=== PATIENT | male | born 1955 | race Caucasian/White ===

== ENCOUNTER 2018-05-02 05:38 | Outpatient (CLI) | payer MEDICARE, MEDICAID ==
[~2018-05-02] VITALS: Ht 182.9 cm; Wt 66.2 kg
[~2018-05-02 05:38] MED LIST changes: -ALB0.5V IH; -ALPR0.5T7 PO; -ASPI-999 PO; -LEVO50TA6 PO; -PHEN100C4 PO
[2018-05-02] MEDS ORDERED: TIOT18CA2 IH (10:09)
[2018-05-02] MEDS ORDERED: LEVO50TA6 PO (10:09)
[2018-05-02] MEDS ORDERED: ALPR0.5T7 PO (10:09)
[2018-05-02] MEDS ORDERED: ASPI-999 PO (10:09)
[2018-05-02] MEDS ORDERED: ALB0.5V IH (10:09)
[2018-05-02] MEDS ORDERED: PHEN100C4 PO (10:09)
== END 2018-05-02 10:37 ==
LOC: PREOP 05:38
PROVIDERS: ATTEND Specialist
DX: Z01.818 Encounter for other preprocedural examination (principal)

== ENCOUNTER → 2018-05-02 | Outpatient (CLI) | payer MEDICARE, MEDICAID ==
[~2018-05-02] MED LIST: ALB0.5V IH; ALBU8.5H2; ALBU8.5H2 IH; ALBUNEBRX IH; ALPR-557 PO; ALPR0.5T7; ALPR0.5T7 PO; ASPI-266 PO; ASPI-999 PO; AZIT250T12 PO; BUDE10.2 IH; CETI-214 PO; FLUT1DIS26 IH; LEVO50TA6 PO; LEVOTHYROXINE; LVT.05T PO; MOME0.242; ONDA4TAB11; PANT40TA; PHEN-633 PO; PHEN100C4; PHEN100C4 PO; PNT40TEC PO; PRD20T PO; RT-ALBUINH IH; SUCR1TAB; TIOT18CA2; TIOT18CA2 IH; TIOT4MIS2 IH; TR1C15 TOP; VENL75CA55
--- NOTE | 2018-05-02 14:48 | Diagnostic Imaging Report ---
Indication: [id number] smoking history, cessation 4 years ago presents for annual low-dose CT screening. Study compared with a contrast-enhanced CT angio chest performed 04/20/2015. Findings: There are a few scattered thin-walled air cysts and symmetrical air trapping consistent with emphysema. There is some minimal subsegmental atelectasis in the dependent lower lobes felt incidental. There is no lung mass or suspicious pulmonary nodule. There is no effusion or pneumothorax. No acute soft tissue or osseous chest wall pathology, chronic changes of COPD identical in appearance to the previous study. No hilar or mediastinal lymphadenopathy. The aorta is patent and nonaneurysmal. No acute soft tissue or osseous chest wall disease. The visualized upper abdomen nonacute. Impression: L-RADS Category 1. No suspicious finding Chronic stable centrilobular emphysema with minimal atelectasis. No suspicious finding. Annual low-dose CT screening followup recommended in 12 months' time. Dictated by: Dictated on workstation # [id number]
== END ==
LOC: RAD 11:56
PROVIDERS: ATTEND Internal Medicine Critical Care Medicine
DX: J43.2 Centrilobular emphysema (principal); Z87.891 Personal history of nicotine dependence

== ENCOUNTER 2018-05-03 10:48 | Day surgery (SDC) | payer MEDICARE, MEDICAID ==
[~2018-05-03] VITALS: Ht 182.9 cm; Wt 66.2 kg
[~2018-05-03 10:48] MED LIST changes: +ALB0.5V IH; +ALPR0.5T7 PO; +ASPI-999 PO; +LEVO50TA6 PO; +PHEN100C4 PO
--- OUTSIDE RECORDS SUMMARY | 2018-05-03 10:53 | XMS REPORT | Continuity of Care Document ---
Author Author [facility] Organization [facility] Address Unknown Phone Unavailable Allergies Active Description Code Type Severity Reaction Onset Reported/Identified Relationship to Patient Clinical Status Yes AMITRIPTYLINE UNKNOWN UNKNOWN Yes No Known Drug Allergies [id number] Drug Allergy Unknown N/A 03/28/2016 Medications There is no data. Problems Date Dx Coded Attending Type Code Diagnosis Diagnosed By 04/07/2015 CHUYITA ARREOLA MD Ot 496 CHR AIRWAY OBSTRUCT NEC 04/07/2015 CHUYITA ARREOLA MD Ot 780.79 OTH MALAISE FATIGUE 04/07/2015 CHUYITA ARREOLA MD Ot 786.50 CHEST PAIN NOS 04/27/2015 TYSON PAULINO, ALI FACP CCDS Ot 070.70 UNSPECIFIED VIRAL HEPATITIS C WITHOUT HE 04/27/2015 TYSON ROLDAN FACC, ALI FACP CCDS Ot 496 CHR AIRWAY OBSTRUCT NEC 04/27/2015 TYSON ROLDAN FACC, KELLY FACP CCDS Ot 786.09 RESPIRATORY ABNORM NEC 04/27/2015 TYSON ROLDAN FACC, ALI FACP CCDS Ot 786.59 CHEST PAIN NEC 04/27/2015 TYSON PAULINO, ALI FACP CCDS Ot V15.82 HISTORY OF TOBACCO USE 04/27/2015 TYSON PAULINO, ALI FACP CCDS Ot V58.69 OTH MED,LT,CURRENT USE 05/19/2015 BRII LUNDY DO Ot 492.8 05/19/2015 BRII LUNDY DO Ot 786.05 05/21/2015 BRII LUNDY DO Ot 496 05/21/2015 BRII LUNDY DO Ot 786.05 06/01/2015 BRII LUNDY DO Ot 492.8 06/01/2015 BRII LUNDY DO Ot 786.05 07/06/2015 BRII LUNDY DO Ot 496 07/06/2015 BRII LUNDY DO Ot 786.05 07/14/2015 BRII LUNDY DO Ot 496 CHR AIRWAY OBSTRUCT NEC 07/14/2015 BRII LUNDY DO Ot 786.05 SHORTNESS OF BREATH 09/30/2015 BRII LUNDY DO Ot J44.9 10/13/2015 BRII LUNDY DO Ot J44.9 CHRONIC OBSTRUCTIVE PULMONARY DISEASE, U 02/01/2016 HANEY DO, ILEANA L Ot J44.1 CHRONIC OBSTRUCTIVE PULMONARY DISEASE W 02/01/2016 HANEY DO, ILEANA L Ot R42 DIZZINESS AND GIDDINESS 02/01/2016 HANEY DO, ILEANA L Ot Z87.891 PERSONAL HISTORY OF NICOTINE DEPENDENCE 03/28/2016 [place] JUAN IRENE D Ot Z12.11 ENCOUNTER FOR SCREENING FOR MALIGNANT NE 03/28/2016 [place] JUAN IRENE D Ot Z80.0 FAMILY HISTORY OF MALIGNANT NEOPLASM OF 03/30/2016 [place] JUAN IRENE D Ot Z12.11 ENCOUNTER FOR SCREENING FOR MALIGNANT NE 03/30/2016 [place] JUAN IRENE D Ot Z80.0 FAMILY HISTORY OF MALIGNANT NEOPLASM OF 02/13/2018 Catherine Oneyda A 345.80 OTHER FORMS OF EPILEPSY AND RECURRENT SEIZURES, WITHOUT MENTION OF INTRACTABLE EPILEPSY 02/13/2018 Catherine Oneyda A G40.801 OTHER EPILEPSY, NOT INTRACTABLE, WITH STATUS EPILEPTICUS 02/13/2018 Catherine Oneyda W 070.30 VIRAL HEPATITIS B WITHOUT MENTION OF HEPATIC COMA, ACUTE OR UNSPECIFIED, WITHOUT MENTION OF HEPATITIS DELTA 02/13/2018 Catherine Oneyda W 070.54 02/13/2018 Alfreda Alexanderhy W 300.00 ANXIETY STATE, UNSPECIFIED 02/13/2018 Catherine Oneyda A 345.80 OTHER FORMS OF EPILEPSY AND RECURRENT SEIZURES, WITHOUT MENTION OF INTRACTABLE EPILEPSY 02/13/2018 Alfreda Alexanderhy W 477.8 02/13/2018 Oneyda Alexander W 496 CHRONIC AIRWAY OBSTRUCTION, NOT ELSEWHERE CLASSIFIED 02/13/2018 Oneyda Alexander W B18.2 CHRONIC VIRAL HEPATITIS C 02/13/2018 Catherine Oneyda W B19.10 UNSPECIFIED VIRAL HEPATITIS B WITHOUT HEPATIC COMA 02/13/2018 Alfreda Alexanderhy W F41.9 ANXIETY DISORDER, UNSPECIFIED 02/13/2018 Catherine Oneyda A G40.801 OTHER EPILEPSY, NOT INTRACTABLE, WITH STATUS EPILEPTICUS 02/13/2018 Oneyda Alexander W J30.2 OTHER SEASONAL ALLERGIC RHINITIS 02/13/2018 Catherine, Oneyda W J44.9 CHRONIC OBSTRUCTIVE PULMONARY DISEASE, UNSPECIFIED 02/13/2018 Catherine, Oneyda W 070.30 02/13/2018 Catherine, Oneyda W 070.54 02/13/2018 Catherine, Oneyda W 244.9 02/13/2018 Catherine, Oneyda W 300.00 02/13/2018 Catherine, Oneyda A 345.80 OTHER FORMS OF EPILEPSY AND RECURRENT SEIZURES, WITHOUT MENTION OF INTRACTABLE EPILEPSY 02/13/2018 Catherine, Oneyda W 477.8 02/13/2018 Catherine, Oneyda W 496 CHRONIC AIRWAY OBSTRUCTION, NOT ELSEWHERE CLASSIFIED 02/13/2018 Catherine, Oneyda W B18.2 CHRONIC VIRAL HEPATITIS C 02/13/2018 Catherine, Oneyda W B19.10 UNSPECIFIED VIRAL HEPATITIS B WITHOUT HEPATIC COMA 02/13/2018 Catherine, Oneyda W E03.9 HYPOTHYROIDISM, UNSPECIFIED 02/13/2018 Catherine, Oneyda W F41.9 ANXIETY DISORDER, UNSPECIFIED 02/13/2018 Catherine, Oneyda A G40.801 OTHER EPILEPSY, NOT INTRACTABLE, WITH STATUS EPILEPTICUS 02/13/2018 Catherine, Oneyda W J30.2 OTHER SEASONAL ALLERGIC RHINITIS 02/13/2018 Catherine, Oneyda W J44.9 CHRONIC OBSTRUCTIVE PULMONARY DISEASE, UNSPECIFIED 04/30/2018 BRII LUNDY DO Ot 492.8 EMPHYSEMA NEC 04/30/2018 BRII LUNDY DO Ot 786.05 SHORTNESS OF BREATH 04/30/2018 BRII LUNDY DO Ot J44.9 CHRONIC OBSTRUCTIVE PULMONARY DISEASE, U 04/30/2018 BRII LUNDY DO Ot Z87.891 PERSONAL HISTORY OF NICOTINE DEPENDENCE Procedures There is no data. Results Test Result Range Thyroid Stimulating Hormone - 04/23/17 14:20 TSH 1.71 mIU/mL 0.32-5.00 Dilantin - 04/25/17 11:10 Dilantin 7.7 ug/mL 10.0-20.0 Hep B Surface Ab - 10/25/17 08:45 Hep B Surface Ab, Qual Non Reactive Hep B Core Ab, Tot - 10/25/17 08:45 Hep B Core Ab, Tot Positive Negative Hep B Core Ab, IgM - 10/25/17 08:45 Hep B Core Ab, IgM Negative Negative Thyroid Stimulating Hormone - 10/25/17 08:45 TSH 2.07 mIU/mL 0.32-5.00 Hep B Core Ab, Tot - 10/25/17 08:45 HEP B CORE AB, TOT POSITIVE NEGATIVE Hep B Core Ab IgM - 10/25/17 08:45 Hep B Core Ab, IgM NEGATIVE NEGATIVE Hepatitis C Virus (HCV) RNA, Qual, JEROME w/ reflex to Quant PC - 10/25/17 11:45 HCV RNA JEROME QUALITATIVE POSITIVE NEGATIVE HEPATITIS C QUANTITATION [id number] IU/ML TEST INFORMATION: THE QUANTITATIVE RANGE OF THIS ASSAY IS 15 IU/ML TO 100 MILLION IU/ML. LOG 10 5.250 LOG10 IU/ML HCV RNA JEROME Qual rfx to Quant - 10/25/17 11:45 HCV RNA JEROME Qualitative Positive Negative HCV Real-Time, PCR, Quant - 10/25/17 11:45 Hepatitis C Quantitation [id number] IU/mL log 10 5.250 log10 IU/mL Test Information: Comment Dilantin - 10/26/17 10:30 Dilantin 12.7 ug/mL 10.0-20.0 Thyroid Stimulating Hormone - 02/13/18 14:22 TSH 1.80 mIU/mL 0.32-5.00 Hepatitis C Virus (HCV) RNA, Qual, JEROME w/ reflex to Quant PC - 02/13/18 14:22 HCV RNA JEROME QUALITATIVE NEGATIVE NEGATIVE HCV RNA JEROME Qual rfx to Quant - 02/13/18 14:22 HCV RNA JEROME Qualitative Negative Negative Encounters ACCT No. Visit Date/Time Discharge Status Pt. Type Provider Facility Loc./Unit Complaint [id number] 04/25/2018 11:33:00 04/25/2018 23:59:59 CLS Preadmit BRII LUNDY DO [facility] RAD SMOKING HISTORY [id number] 03/28/2016 07:39:00 03/28/2016 09:35:00 DIS Outpatient JUAN WOODS DO [facility] SCREENING,FAMILY HX COLON CANCER [id number] 02/01/2016 14:26:00 02/01/2016 17:52:00 DIS Emergency ILEANA HANEY DO [facility] ER SOA/DIZZY [id number] 10/14/2015 15:00:00 10/14/2015 23:59:59 CLS Preadmit BRII ULNDY DO [facility] PULM COPD, DYSPNEA [id number] 07/22/2015 09:00:00 10/13/2015 00:01:00 DIS Outpatient BRII LUNDY DO [facility] PULM COPD, DYSPNEA [id number] 07/13/2015 09:00:00 07/14/2015 00:01:00 DIS Outpatient BRII LUNDY DO [facility] PULM COPD, DYSPNEA [id number] 04/27/2015 07:08:00 04/27/2015 12:18:00 DIS Outpatient TYSON ROLDAN FACC, KELLY FACP CCDS [facility] CATH CP,SOB [id number] 04/20/2015 12:41:00 04/20/2015 23:59:59 CLS Outpatient BRII LUNDY DO [facility] RAD COPD,DYSPNEA [id number] 04/07/2015 12:53:00 04/07/2015 17:32:00 DIS Emergency ELBA ROLDAN, CHUYITA Owens [facility] ER L CHEST PAIN [id number] 05/03/2018 13:00:00 PEN Preadmit LORI SELF MD [facility] CATARACT LEFT EYE [id number] 07/27/2015 17:07:31 ACT Document Registration [id number] 10/27/2017 17:09:00 Document Registration [id number] 02/13/2018 14:21:00 02/13/2018 23:59:00 DIS Outpatient Oneyda Alexander [id number] 10/26/2017 10:30:00 10/26/2017 23:59:00 DIS Outpatient Oneyda Alexander [id number] 2017 11:44:00 2017 23:59:00 DIS Outpatient Oneyda Alexander [id number] 2017 10:56:00 2017 23:59:00 DIS Outpatient Oneyda Alexander [id number] 2017 08:45:00 2017 23:59:00 DIS Outpatient Oneyda Alexander [id number] 04/25/2017 11:54:00 04/25/2017 23:59:00 DIS Outpatient Regulo Elias [id number] 04/23/2017 15:20:00 04/23/2017 23:59:00 DIS Outpatient Regulo Elias [id number] 11/01/2017 16:18:00 Document Registration [id number] 02/16/2018 17:10:00 Document Registration
[2018-05-03] MEDS ORDERED: POVIDONE (BETADINE) OPHTH SOLN 5% 30 ML OP ONE (11:00)
[2018-05-03] MEDS ORDERED: VANCOMYCIN/BSS (COMPOUNDED) 10 MG/ML SYR OP ONE (11:00)
[2018-05-03] MEDS ORDERED: TIMOLOL MALEATE 0.5% 5 ML (TIMOPTIC) BTL OU PRN (11:00)
[2018-05-03] MEDS ORDERED: EPINEPHrine INJECTION 1 MG/ML AMP INJ ONE (11:00)
[2018-05-03] MEDS ORDERED: LIDOCAINE PF 1% 2 ML AMP IR PRN (11:00)
[2018-05-03] MEDS: TETRACAINE 0.5% OPHTH SOLN 4 ML BTL (SINGLE DOSE ONLY) OU PRN ×4 (11:01→11:20)
[2018-05-03] MEDS: PHENYLEPHRINE 10% OPHTH (NEO-SYN) 5 ML BTL OU SCH ×3 (11:07→11:20)
[2018-05-03] MEDS: CYCLOPENTOLATE 1% (CYCLOGYL) 2 ML DROPS OP SCH ×3 (11:07→11:20)
[2018-05-03 11:13] VITALS: BP 136/83
--- NOTE | 2018-05-03 11:37 | Ophthalmologist Pre-Op Note ---
Pre-Operative Progress Note H&P Reviewed The H&P was reviewed, patient examined and no changes noted. Date H&P Reviewed: May 03, 2018 Time H&P Reviewed: 11:36 Pre-Op Dx Cataract, Left Eye LORI SELF MD May 03, 2018 11:37
[2018-05-03] MEDS ORDERED: MIDAZOLAM 2 MG/2 ML (VERSED) VIAL ONE (11:39)
--- NOTE | 2018-05-03 12:05 | Ophthalmology Operative Report ---
Cataract removal/placement IOL PREOPERATIVE DIAGNOSIS: Cataract Left Eye POSTOPERATIVE DIAGNOSIS: Cataract Left Eye PROCEDURE: Cataract removal and placement of posterior chamber implant, left eye SURGEON: Edgardo Self ANESTHESIA: Topical with sedation COMPLICATIONS: None ESTIMATED BLOOD LOSS: Minimal DESCRIPTION OF PROCEDURE: After proper informed consent was obtained, the patient, a 62 male, was taken to the Operating Room and the left eye was anesthetized with tetracaine. The left eye was then prepped and draped in the usual manner. A wire lid speculum was placed. A paracentesis was made at the left hand position. Preservative free lidocaine was injected into the anterior chamber followed by viscoelastic. A clear corneal incision was made in the temporal position. A capsulorrhexis was preformed and the central nuclear and cortical material were removed. The posterior capsule was polished and an Ace 31.0 SN60AT IOL was placed into the capsular bag. The residual viscoelastic was aspirated and balanced saline solution was injected into the anterior chamber. Vancomycin was injected into the anterior chamber. The wound was checked and found to be water tight. The patient tolerated the procedure well without complications. EDGARDO SELF MD May 03, 2018 12:05
[2018-05-03 12:08] VITALS: BP 128/86
--- NOTE | 2018-05-03 12:42 | Anesthesia-General Post-Op ---
MAC Patient Condition Mental Status/LOC: Same as Preop Cardiovascular: Satisfactory Nausea/Vomiting: Absent Respiratory: Satisfactory Pain: Controlled Complications: Absent Post Op Complications Complications None Follow Up Care/Instructions Patient Instructions None needed. Anesthesiology Discharge Order Discharge Order Patient is doing well, no complaints, stable vital signs, no apparent adverse anesthesia problems. No complications reported per nursing. MEGAN SHAH CRNA May 03, 2018 12:42
== END 2018-05-03 12:08 | disposition home or self-care (01) ==
LOC: SDC 10:48
PROVIDERS: ATTEND Specialist
DX: H26.9 Unspecified cataract (principal); J44.9 Chronic obstructive pulmonary disease, unspecified; R56.9 Unspecified convulsions; F17.200 Nicotine dependence, unspecified, uncomplicated; Z79.82 Long term (current) use of aspirin

== ENCOUNTER → 2018-05-28 | Outpatient (CLI) | payer MEDICARE, MEDICAID ==
--- NOTE | 2018-05-28 08:57 | Diagnostic Imaging Report ---
CLINICAL INDICATION: Patient with elevated ALT. EXAM: Ultrasound of both kidneys. COMPARISON: None. FINDINGS: Both kidneys are normal in size, shape, echogenicity and cortical thickness without hydronephrosis, stones, or focal lesions with the right and left kidneys measuring 10.5 cm and 10.4 cm in their craniocaudal dimensions, respectively. The bladder is partially fluid-filled with no gross abnormality noted. Ureteral jets are not visualized. IMPRESSION: Unremarkable bilateral renal ultrasound. Dictated by: Dictated on workstation # [id number]
--- NOTE | 2018-05-28 09:16 | Diagnostic Imaging Report ---
INDICATION: Elevated liver function tests TECHNIQUE: Multiple grayscale sonographic images were obtained of the right upper quadrant of the abdomen. CORRELATION STUDY: None FINDINGS: LIVER: There is uniform echotexture within the visualized portions of the liver. There is normal, hepatopedal direction of flow within the main portal vein. Liver size 18 cm. GALLBLADDER: The gallbladder demonstrates no definitive shadowing gallstones. No abnormal gallbladder wall thickening or pericholecystic fluid. COMMON BILE DUCT: Nondilated at 3 mm. PANCREAS: Visualized portions appearing unremarkable. RIGHT KIDNEY: Measures 9.9 cm. No hydronephrosis. AORTA/IVC: Not well visualized. OTHER: None. IMPRESSION: 1. Unremarkable appearing right upper quadrant abdominal ultrasound. Dictated by: Dictated on workstation # [id number]
== END ==
LOC: RAD 07:36
PROVIDERS: ATTEND Registered Nurse
DX: R74.0 Nonspecific elevation of levels of transaminase and lactic acid dehydrogenase [LDH] (principal)
CPT/HCPCS: 76705; 76770

== ENCOUNTER → 2018-11-13 | Outpatient (CLI) | payer MEDICARE, MEDICAID ==
[~2018-11-13] MED LIST changes: +HYDR-4226 PO
--- NOTE | 2018-11-13 11:56 | Diagnostic Imaging Report ---
PROCEDURE: US Hepatic (Liver). TECHNIQUE: Multiple real-time grayscale images were obtained over the right upper quadrant in various projections. INDICATION: Elevated liver enzymes. FINDINGS: The previous hepatic ultrasound exam performed on 05/28/2018 failed to show any mass involving the liver. On this study, the liver is homogeneous and not enlarged. There is still no focal mass identified and the biliary tree is not abnormally dilated. Spectral and color flow imaging of the portal and hepatic vasculature shows that the veins are patent and that there is normal direction of flow within the veins. There is no evidence for cholelithiasis or acute cholecystitis and the common bile duct is not dilated. The right kidney is unremarkable. The pancreas and proximal aorta are partially obscured by bowel gas. IMPRESSION: 1. There is no evidence for an acute abnormality of the right upper quadrant. When compared to the previous study, there has been no significant change. Dictated by: Dictated on workstation # [id number]
== END ==
LOC: RAD 06:58
PROVIDERS: ATTEND Registered Nurse
DX: B19.10 Unspecified viral hepatitis B without hepatic coma (principal); B19.20 Unspecified viral hepatitis C without hepatic coma
CPT/HCPCS: 76705

== ENCOUNTER → 2019-05-05 | Outpatient (CLI) | payer MEDICARE, MEDICAID ==
[~2019-05-05] MED LIST changes: -CETI-214 PO; +CETI-458 PO
--- NOTE | 2019-05-05 13:19 | Diagnostic Imaging Report ---
INDICATION: 24-hulf-qpck smoking history, cessation five years ago, presents for annual low-dose CT screening. COMPARISON: 05/02/2018. PROTOCOL: Low-dose nonenhanced chest CT performed with multiplanar reconstructions. FINDINGS: Air trapping and features of COPD as a chronic finding are noted. No significant bronchiectasis. No pneumonia. There are few trace zones of subsegmental subpleural atelectasis. No suspicious nodularity or dominant lung mass. No thoracic adenopathy. Mild tracheobronchomegaly, stable. No evidence for adenopathy. No thoracic aneurysm. No acute chest wall pathology. IMPRESSION: 1. Benign changes of COPD with no suspicious nodule. 2. Continued low-dose CT follow-up in one year's time recommended. LUNG-RADS CATEGORY: 1 - Negative. No lung nodules. Continue annual screening with LDCT in 12 months. Dictated by: Dictated on workstation # [id number]
== END ==
LOC: RAD 11:21
PROVIDERS: ATTEND Nurse Practitioner Family
DX: Z12.2 Encounter for screening for malignant neoplasm of respiratory organs (principal); J44.9 Chronic obstructive pulmonary disease, unspecified; Z87.891 Personal history of nicotine dependence

== ENCOUNTER → 2020-05-06 | Outpatient (CLI) | payer MEDICARE, MEDICAID ==
--- NOTE | 2020-05-06 13:30 | Diagnostic Imaging Report ---
EXAMINATION: CT Chest without contrast (lung screening). TECHNIQUE: Multiple contiguous axial images were obtained through the chest without the use of intravenous contrast according to lung cancer screening protocol. All CT scans use one or more of the following dose optimizing techniques: automated exposure control, MA and/or KvP adjustment based on a patient size and exam type, or iterative reconstruction. HISTORY: 44 pack year history of smoking. COMPARISON: 05/05/2019 FINDINGS: There is no edema or pneumonia. No pleural effusion. No pneumothorax. No suspicious nodules. Mucus is present in the trachea. Heart size is normal. There are no coronary artery calcifications. No pericardial effusion. Aorta is normal in caliber. There is no axillary or supraclavicular lymphadenopathy. There is no mediastinal lymphadenopathy. Limited views of the upper abdomen are unremarkable. There are no suspicious osseus lesions. IMPRESSION: 1. No suspicious pulmonary nodules. LUNG-RADS CATEGORY: 1 MODIFIER: None. Dictated by: Dictated on workstation # [id number]
== END ==
LOC: RAD 11:35
PROVIDERS: ATTEND Nurse Practitioner Family
DX: Z12.2 Encounter for screening for malignant neoplasm of respiratory organs (principal); Z87.891 Personal history of nicotine dependence

== ENCOUNTER → 2021-03-02 | Outpatient (CLI) | payer MEDICARE, MEDICAID ==
[~2021-03-02] MED LIST changes: +RT-ALBUTEROL SULF 2.5 MG/3 ML PRE-MIX VIAL INH ONE
== END ==
LOC: RT 12:22
PROVIDERS: ATTEND Nurse Practitioner Family
DX: J44.9 Chronic obstructive pulmonary disease, unspecified (principal)
CPT/HCPCS: 94060; 94726; 94729

== ENCOUNTER 2021-05-03 05:35 | Outpatient (CLI) | payer MEDICARE, MEDICAID ==
[~2021-05-03 05:35] MED LIST changes: -RT-ALBUTEROL SULF 2.5 MG/3 ML PRE-MIX VIAL INH ONE
[2021-05-03] MEDS ORDERED: LEVE500S9 PO (15:16)
[2021-05-03] MEDS ORDERED: CETI10TA17 PO (15:16)
[2021-05-03] MEDS ORDERED: LEVO-129 PO (15:16)
[2021-05-03] MEDS ORDERED: UMEC62.5 IH (15:16)
[2021-05-03] MEDS ORDERED: BUDE10.7 IH (15:16)
== END 2021-05-03 16:01 | disposition home or self-care (01) ==
LOC: PREOP 05:35
PROVIDERS: ATTEND Surgery
DX: Z01.818 Encounter for other preprocedural examination (principal)

== ENCOUNTER 2021-05-10 10:10 | Day surgery (SDC) | payer MEDICARE, MEDICAID ==
[~2021-05-10] VITALS: Ht 183 cm; Wt 69.0 kg
[~2021-05-10 10:10] MED LIST changes: +BUDE10.7 IH; +CETI10TA17 PO; +LEVE500S9 PO; +LEVO-129 PO; +UMEC62.5 IH
[2021-05-10] MEDS ORDERED: LACTATED RINGERS 1,000 ML IV ONE (10:27)
[2021-05-10] MEDS ORDERED: LACTATED RINGERS 1,000 ML IV STA (10:27)
[2021-05-10 10:40] VITALS: BP 148/92
[2021-05-10] MEDS ORDERED: PROPOFOL INJECTION 50 ML IV ONE (12:46)
[2021-05-10] MEDS ORDERED: MIDAZOLAM 2 MG/2 ML (VERSED) VIAL ONE (12:46)
--- NOTE | 2021-05-10 12:46 | Progress Note-Pre Operative ---
Pre-Operative Progress Note H&P Reviewed The H&P was reviewed, patient examined and no changes noted. Date Seen by Provider: May 10, 2021 Time Seen by Provider: 12:45 Date H&P Reviewed: May 10, 2021 Time H&P Reviewed: 12:45 Pre-Operative Diagnosis: family hx colon ca JUAN WOODS DO May 10, 2021 12:45
[2021-05-10 13:20] VITALS: BP 101/68
[2021-05-10 13:25] VITALS: BP 120/74
--- NOTE | 2021-05-10 13:27 | Discharge Inst-Simple/Standard ---
Discharge Inst-Standard Patient Instructions/Follow Up Plan of Care/Instructions/FU: 5 years repeat colonoscopy, any issues before that be seen at that time. Activity as Tolerated: Yes Discharge Diet: Regular Diet JUAN WOODS DO May 10, 2021 13:27
--- NOTE | 2021-05-10 13:28 | Progress Note-Post Operative ---
Post-Operative Progess Note Surgeon (s)/Whiting Machine Operator (s) Surgeon JUAN WOODS DO Whiting Machine Operator: na Pre-Operative Diagnosis family hx colon ca Post-Operative Diagnosis normal colon Procedure & Operative Findings Date of Procedure 05/10/21 Procedure Performed/Findings colonoscopy Anesthesia Type per clerk Estimated Blood Loss Estimated blood loss (mL): none Specimens/Packing Specimens Removed na JUAN WOODS DO May 10, 2021 13:28
[2021-05-10 13:30] VITALS: BP_SYST 117; BP_SYST 129; BP_DIAS 77; BP_DIAS 79
[2021-05-10 13:55] VITALS: BP 135/84
[2021-05-10 14:00] VITALS: BP 135/84
--- NOTE | 2021-05-10 17:51 | OPERATIVE REPORT ---
DATE OF SERVICE: 05/10/2021 PREOPERATIVE DIAGNOSIS: Family history of colon cancer. POSTOPERATIVE DIAGNOSIS: Normal colon. PROCEDURE PERFORMED: Colonoscopy. SURGEON: Juan Quezada DO ANESTHESIA: Per ORTHODONTIC TECHNICIAN ASSISTANT. ESTIMATED BLOOD LOSS: None. COMPLICATIONS: None. INDICATIONS FOR PROCEDURE: The patient is a 65-year-old male with family history of colon cancer. He understands the risks and benefits of procedure and wishes to proceed with the procedure. Consent was signed in the chart. DESCRIPTION OF PROCEDURE: The patient was taken to the endoscopy suite and placed in a left lateral recumbent position. Timeout was performed. Digital rectal exam was performed. No palpable polyps, masses or ulcerations. Scope was inserted in the rectum and advanced all the way to cecum with minimal difficulty. Prep was adequate. Scope was then slowly retracted back. No polyps, masses or ulcerations within the cecum, ascending, transverse, descending and sigmoid colon. Once in the rectum, scope was retroflexed noting no other pathology. Scope was returned to its normal position, slowly withdrawn until completely removed. The patient tolerated the procedure well without any complications. He was taken to recovery room in stable condition. RECOMMENDATIONS: The patient will need repeat colonoscopy in five years. Any issues before that be seen at that time. Job ID: [id number] DocumentID: [id number] Dictated Date: 05/10/2021 13:31:07 Engineering Group Manager Date: 05/10/2021 17:50:12 Dictated By: JUAN QUEZADA DO
== END 2021-05-10 14:01 | disposition home or self-care (01) ==
LOC: ENDO 10:10
PROVIDERS: ATTEND Surgery
DX: Z12.11 Encounter for screening for malignant neoplasm of colon (principal); J43.9 Emphysema, unspecified; I20.9 Angina pectoris, unspecified; F32.9 Major depressive disorder, single episode, unspecified; Z79.82 Long term (current) use of aspirin; Z79.51 Long term (current) use of inhaled steroids; Z79.899 Other long term (current) drug therapy; Z79.02 Long term (current) use of antithrombotics/antiplatelets; Z87.891 Personal history of nicotine dependence; Z80.0 Family history of malignant neoplasm of digestive organs

== ENCOUNTER → 2021-05-19 | Outpatient (CLI) | payer MEDICARE, MEDICAID ==
--- NOTE | 2021-05-19 10:38 | Diagnostic Imaging Report ---
CT Lung Screening INDICATION:Screening for lung cancer, 72-cjaw-rfqv history of smoking, quit smoking 6 years prior. TECHNIQUE: Noncontrast, low-dose CT imaging performed according to the lung cancer screening protocol. Auto Exposure Controls were utilize during the CT exam to meet ALARA standards for radiation dose reduction. COMPARISON:05/06/2020 and 05/05/2019 FINDINGS:No significant adenopathy within the chest. Mild scattered vascular calcifications within the thoracic aorta and its branch vessels, including within the coronary arteries. No aneurysmal dilatation of thoracic aorta. No pericardial effusion. No pleural effusion. Linear secretions are noted within the trachea and left mainstem bronchus. Moderate background emphysematous changes. No pneumothorax. New 0.4 x 0.4 x 0.4 cm solid left upper lobe pulmonary nodule, series 4, image 80. A 2 mm subpleural right upper lobe pulmonary nodule is stable since 2019 and benign. Irregular 1.0 x 1.0 x 0.9 cm right lower lobe pulmonary nodule is present, series 4, image 176 and series 602, image 43. An adjacent irregular 0.8 x 0.5 cm right lower lobe pulmonary nodule is noted just posterior and superior to the additional irregular pulmonary nodule. This is best seen on series 4, image 172. The minimally visualized upper abdomen is grossly unremarkable. Mild scattered osseous degenerative changes without acute osseous abnormality. IMPRESSION: Two adjacent irregular right lower lobe pulmonary nodules are present which are very suspicious for malignancy. Recommend CT-guided biopsy of the dominant irregular 1 cm right lower lobe pulmonary nodule. New 0.4 cm solid left upper lobe pulmonary nodule. This is indeterminate. A follow-up CT of the chest is recommended in 6 months to reevaluate. Given small size, this would be below the size threshold of PET. Moderate background emphysematous changes. LUNG-RADS CATEGORY:4B: Very suspicious MODIFIER:S: Moderate background emphysematous changes FOLLOWUP: CT-guided biopsy of the dominant 1 cm right lower lobe irregular pulmonary nodule. Called and faxed to Daysi Grider APRN Dictated by: Dictated on workstation # [id number]
== END ==
LOC: RAD 09:15
PROVIDERS: ATTEND Nurse Practitioner Family
DX: Z12.2 Encounter for screening for malignant neoplasm of respiratory organs (principal); J43.9 Emphysema, unspecified; R91.8 Other nonspecific abnormal finding of lung field; Z87.891 Personal history of nicotine dependence
CPT/HCPCS: 71271

== ENCOUNTER → 2021-06-14 | Outpatient (CLI) | payer MEDICARE, MEDICAID ==
--- NOTE | 2021-06-14 14:53 | Diagnostic Imaging Report ---
Indication: Right lower lobe lung nodule and dyspnea. Serum blood glucose level at time of injection is 109 mg/dL. The patient was administered 14.7 mCi F-18 FDG intravenously in left antecubital location and PET imaging was performed from the top of skull to mid thighs. Noncontrast CT was also performed for attenuation correction and anatomic correlation. No prior PET studies available for comparison. Comparison is made with recent CT chest screening study from 05/19/2021. There is symmetric activity throughout the brain. No suspicious activity in the soft tissues of the neck are identified. No mediastinal or hilar hypermetabolism is identified. The small irregular densities in the right lower lobe seen on recent CT study does not demonstrate FDG avidity. Very low level activity is noted with SUV values approximate 1.2. No suspicious parenchymal metabolism is identified. Physiologic activity throughout the gastrointestinal and genitourinary tract of abdomen pelvis is noted. IMPRESSION: There is a low level activity identified in the irregular right lower lobe nodular densities seen on recent CT chest study. Despite low level activity these again remain somewhat suspicious. These are likely too small for percutaneous sampling. Surgical excision or short interval CT chest follow-up would be recommended to confirm stability. Dictated by: Dictated on workstation # [id number]
== END ==
LOC: RAD 11:27
PROVIDERS: ATTEND Nurse Practitioner Family
DX: J98.4 Other disorders of lung (principal)
CPT/HCPCS: 78815; A9552

== ENCOUNTER → 2021-09-26 | Outpatient (CLI) | payer MEDICARE, MEDICAID ==
--- NOTE | 2021-09-26 17:18 | Diagnostic Imaging Report ---
EXAMINATION: CT chest without contrast. TECHNIQUE: Multiple contiguous axial images were obtained through the chest without the use of intravenous contrast. All CT scans use one or more of the following dose optimizing techniques: Automated exposure control, MA and/or KvP adjustment based on patient size and exam type or iterative reconstruction. HISTORY: Follow-up pulmonary nodule. Dyspnea. COPD. COMPARISON: 05/19/2021. 06/14/2021. FINDINGS: The heart size is within normal limits. No pericardial effusion is present. There is calcified aortic atherosclerotic plaque. There is no mediastinal, hilar, or axillary lymphadenopathy. Spiculated soft tissue nodules are seen in the right lower lobe, the largest measuring 1.1 x 0.8 cm, previously measuring 1.0 x 0.9 cm. The smaller nodule measures 0.8 x 0.7 cm, previously measuring 0.8 x 0.5 cm. No new suspicious pulmonary nodules are seen. Centrilobular emphysema is present, greatest in the lung apices. There are no focal areas of consolidation. No central endobronchial obstructing lesions are identified. There is no pleural effusion or pneumothorax. The osseous structures demonstrate no acute abnormalities. Limited views of the upper abdominal structures demonstrate no acute abnormalities. Both adrenal glands are unremarkable. IMPRESSION: 1. Relatively stable appearance of spiculated soft tissue nodules in the right lower lobe. These remain suspicious for malignancy, and continued close follow-up is recommended with CT chest in 3-6 months. Dictated by: Dictated on workstation # [id number]
== END ==
LOC: RAD 11:45
PROVIDERS: ATTEND Registered Nurse
DX: J44.9 Chronic obstructive pulmonary disease, unspecified (principal); R91.8 Other nonspecific abnormal finding of lung field
CPT/HCPCS: 71250

== ENCOUNTER → 2022-03-30 | Outpatient (CLI) | payer MEDICARE, MEDICAID | LOC: CARD 12:53 | PROVIDERS: ATTEND Nurse Practitioner Family | DX: R06.02 Shortness of breath (principal); R06.00 Dyspnea, unspecified | CPT/HCPCS: 93306 ==

== ENCOUNTER 2023-03-27 08:46 | Outpatient (RCR) | payer MEDICARE, MEDICAID | END 2023-04-13 12:22 | disposition home or self-care (01) | PROVIDERS: ATTEND Internal Medicine Critical Care Medicine | DX: J44.9 Chronic obstructive pulmonary disease, unspecified (principal); I10 Essential (primary) hypertension ==

== ENCOUNTER 2023-03-28 07:07 | Emergency (ER) | payer MEDICARE, MEDICAID ==
[~2023-03-28] VITALS: Ht 182 cm; Wt 59.8 kg
--- NOTE | 2023-03-28 07:22 | ED Fall/Injury ---
General Stated Complaint: FALL | RT SIDE RIB PAIN History of Present Illness Date Seen by Provider: Mar 28, 2023 Time Seen by Provider: 07:18 Initial Comments 67-year-old male reports that he got up out of bed in the middle of the night, tripped over a cat toy and fell hit the right side of his back on the floor. He has some mild tenderness. No obvious deformity. Reports that he got up and went back to bed. Presents just because he has continued pain. Allergies and Home Medications Allergies Coded Allergies: No Known Drug Allergies (Verified , 03/28/16) Patient Home Medication List Home Medication List Reviewed: Yes Albuterol Sulfate (Ventolin Hfa) 18 Gm Hfa.aer.ad, 1-2 PUFF IH QID PRN for WHEEZING, (Reported) Entered as Reported by: JOSEPH BEACH on 03/28/16 0830 Albuterol Sulfate (Albuterol Sulfate) 2.5 Mg/0.5 Ml Vial.neb, 2.5 MG IH Q4H PRN for SHORTNESS OF BREATH, (Reported) Entered as Reported by: JANENE FROST on 05/02/18 1009 Alprazolam (Alprazolam) 0.5 Mg Tablet, 0.5 MG PO BID PRN for ANXIETY, (Reported) Entered as Reported by: JANENE FROST on 05/02/18 1009 Aspirin (Aspirin) 81 Mg Tab.chew, 81 MG PO DAILY, (Reported) Entered as Reported by: JANENE FROST on 05/02/18 1009 Budesonide/Glycopyr/Formoterol (Breztri Aerosphere Inhaler) 10.7 Gm Hfa.aer.ad, 10.7 GM IH BID, (Reported) Entered as Reported by: JOSEPH BEACH on 05/03/21 1516 Cetirizine HCl (Allergy Relief) 10 Mg Tablet, 10 MG PO DAILY, (Reported) Entered as Reported by: JOSEPH BEACH on 03/28/16 0828 Levetiracetam (Levetiracetam) 500 Mg/5 Ml Solution, 500 MG PO BID, (Reported) Entered as Reported by: JOSEPH BEACH on 05/03/21 1516 Levothyroxine Sodium (Euthyrox) 50 Mcg Tablet, 50 MCG PO DAILY, (Reported) Entered as Reported by: JOSEPH BEACH on 05/03/21 1516 Phenytoin Sodium Extended (Dilantin) 100 Mg Capsule, 300 MG PO HS, (Reported) Entered as Reported by: JANENE FROST on 05/02/18 1009 Tiotropium [place] (Spiriva) 1 Inh Aerp, 2 PUFF IH DAILY, (Reported) Entered as Reported by: JANENE FROST on 05/02/18 1009 Review of Systems Review of Systems Constitutional: no symptoms reported Eyes: No Symptoms Reported Ears, Nose, Mouth, Throat: no symptoms reported Respiratory: see HPI Cardiovascular: no symptoms reported Gastrointestinal: no symptoms reported Genitourinary: no symptoms reported Musculoskeletal: see HPI Past Aurxzrd-Bfvnlw-Pnzbcv Hx Seasonal Allergies Seasonal Allergies: Yes Past Medical History Surgeries: Yes Orthopedic Respiratory: Yes COPD Cardiac: No Hypertension Neurological: No Genitourinary: No Gastrointestinal: No Musculoskeletal: No Endocrine: No HEENT: No Loss of Vision: Denies Cancer: No Skin Psychosocial: Yes Anxiety, Depression Integumentary: No Blood Disorders: No Family Medical History Colon cancer Physical Exam Vital Signs Vital Signs - First Documented 03/28/23 07:20 Temp 35.9 Pulse 75 Resp 16 B/P (MAP) 145/84 (104) Pulse Ox 96 Capillary Refill : Height, Weight, BMI Height: 6'0.00" Weight: 143lbs. 0.0oz. [id number]; 20.60 BMI Method:Stated General Appearance: WD/WN, no apparent distress Neck: non-tender, supple Cardiovascular: normal peripheral pulses, regular rate, rhythm Respiratory: lungs clear, normal breath sounds, no respiratory distress Gastrointestinal: non tender Back: other (Right-sided posterior rib tenderness) Extremities: normal range of motion, non-tender Neurologic/Psychiatric: alert, normal mood/affect, oriented x 3 Skin: normal color, warm/dry Progress/Results/Core Measures Results/Orders My Orders Orders - ILEANA HANEY DO Ribs/Unilateral With Chest (03/28/23 07:23) Vital Signs/I&O 03/28/23 07:20 Temp 35.9 Pulse 75 Resp 16 B/P (MAP) 145/84 (104) Pulse Ox 96 Progress Progress Note : Progress Note Patient's x-ray was ordered reviewed with initial interpretation negative by me with final interpretation per radiology report. There was a concerning finding of lung neoplasm on chest x-ray. I did discuss this with patient but he reports that they were aware of it and they are being seen by oncology and being treated. Patient has no acute fractures. Patient with a posterior chest wall contusion. Discussed with him supportive care. He is stable and discharged home. Departure Impression Primary Impression: Contusion of back wall of thorax Qualified Codes: S20.221A - Contusion of right back wall of thorax, initial encounter Disposition: HOME, SELF-CARE Condition: Stable Departure-Patient Inst. Referrals: SONIA JENKINS (PCP/Family) Primary Care Physician Patient Instructions: Bruised Rib (DC) Add. Discharge Instructions: 4% topical lidocaine with menthol cream gel or patch to area of pain, you may also try Voltaren/diclofenac cream or gel. Tylenol ibuprofen as needed. Follow-up with your primary care provider with any concerns. ILEANA HANEY DO Mar 28, 2023 07:22
--- NOTE | 2023-03-28 08:38 | Diagnostic Imaging Report ---
INDICATION: Post fall this morning, pain posterior lower rib area.. TECHNIQUE: Single view chest along with multiple views right RIBS. CORRELATION STUDY: CT chest 09/26/2021 FINDINGS: Heart size and vasculature within normal limits. Spiculated masslike density in the right infrahilar region is adversely changed from prior. One incompletely visualized measures upwards of 5.8 x 4 cm highly worrisome for lung neoplasm. Scarlike formation extends to the pleural surface laterally and towards the diaphragm. Left lung hyperinflated but clear. No significant effusion or pneumothorax. No acute displaced right rib fracture. IMPRESSION: 1. Spiculated mass right infrahilar region, highly worrisome for primary lung neoplasm. Adversely changed from prior CT study. 2. Negative for acute displaced right-sided rib fracture. Dictated by: Dictated on workstation # [id number]
[2023-03-28 09:03] VITALS: BP 145/84
== END 2023-03-28 09:03 | disposition home or self-care (01) ==
LOC: EDUNIT# 07:07 → ER 07:09
DX: S20.221A Contusion of right back wall of thorax, initial encounter (principal); W01.198A Fall on same level from slipping, tripping and stumbling with subsequent striking against other object, initial encounter
CPT/HCPCS: 71101

== ENCOUNTER 2023-05-11 10:08 | Outpatient (RCR) | payer MEDICARE, MEDICAID | END 2023-05-14 | disposition home or self-care (01) | PROVIDERS: ATTEND Internal Medicine Critical Care Medicine | DX: J44.9 Chronic obstructive pulmonary disease, unspecified (principal); Z87.891 Personal history of nicotine dependence ==

== ENCOUNTER 2023-06-05 13:37 | Outpatient (RCR) | payer MEDICARE, MEDICAID | END 2023-06-11 10:33 | disposition home or self-care (01) | PROVIDERS: ATTEND Internal Medicine Critical Care Medicine | DX: J44.9 Chronic obstructive pulmonary disease, unspecified (principal); I10 Essential (primary) hypertension ==